=== PATIENT | female | born 1995 | race African-American/Black ===

== ENCOUNTER 2020-03-17 01:49 | Emergency (ER) | payer SELFPAY ==
[~2020-03-17 01:49] MED LIST: ESCITALOPRAM OX10 MG PO
== END 2020-03-17 02:08 | disposition left against medical advice (07) ==
LOC: ER 01:49
DX: Z04.1 Encounter for examination and observation following transport accident (principal); Z53.21 Procedure and treatment not carried out due to patient leaving prior to being seen by health care provider